=== PATIENT | female | born 1960 | race Caucasian/White ===

== ENCOUNTER 2017-02-14 22:19 | Emergency (ER) | payer MEDICAID, OTHER ==
[~2017-02-14] VITALS: Ht 152.4 cm; Wt 70.0 kg
[~2017-02-14 22:19] MED LIST: AMOX500C2 PO; IBUP-1542 PO; IBUPROFEN
[2017-02-14 22:21] VITALS: Ht 152.4 cm; Wt 70.0 kg
[2017-02-15] MEDS ORDERED: IBUP400T22 PO (02:12)
[2017-02-15] MEDS ORDERED: GABA300C16 PO (02:12)
[2017-02-15] MEDS ORDERED: HYDR-906 PO (02:12)
--- NOTE | 2017-02-15 02:24 | ERD ---
ER Documentation Chief Complaint Date/Time DATE: 02/15/17 TIME: 02:22 Chief Complaint lower back pain radiates to left leg x 3 days HPI 56-year-old female presents here to emergency department for complaints of left lower back pain radiating to the left lower leg for 3 days. Patient has this chronic type of pain, history of sciatica. Patient denies any trauma in the back. Patient denies any incontinence. Patient denies any hematuria. Patient denies any fever or chills. Patient is able to ambulate on it. Patient discussed the pain is sharp pain, 6/10 scale, intermittent pain, it radiates from the left lower back to the left lower leg. Patient denies any numbness or tingling. Patient denies any fever or chills. ROS All systems reviewed and are negative except as per history of present illness. Medications Home Meds Active Scripts Ibuprofen* (Motrin*) 400 Mg Tab, 400 MG PO Q6H Y for PAIN AND OR ELEVATED TEMP, #30 TAB Prov:HUSSAIN DE LOS SANTOS NP 02/15/17 Gabapentin* (Gabapentin*) 300 Mg Capsule, 300 MG PO BID, #60 CAP Prov:HUSSAIN DE LOS SANTOS NP 02/15/17 Hydrocodone/Acetaminophen ([place] 5-325 Tablet) 1 Each Tablet, 1 TAB PO Q6H Y for SEVERE PAIN LEVEL 7-10, #20 TAB Prov:HUSSAIN DE LOS SANTOS NP 02/15/17 Ibuprofen* (Ibuprofen*) 600 Mg Tablet, 600 MG PO Q6H Y for PAIN AND OR ELEVATED TEMP, #30 TAB Prov:HUSSAIN DE LOS SANTOS NP 01/15/15 Amoxicillin* (Amoxicillin*) 500 Mg Cap, 500 MG PO TID for 10 Days, CAP Prov:UHSSAIN DE LOS SANTOS NP 01/15/15 Reported Medications [Ibuprofen] No Conflict Check 01/15/13 Allergies Allergies: Coded Allergies: No Known Allergy (Unverified , 03/12/14) PMhx/Soc Medical and Surgical Hx: pt denies Surgical Hx History of Surgery: No Anesthesia Reaction: No Hx Neurological Disorder: No Hx Respiratory Disorders: No Hx Cardiac Disorders: No Hx Psychiatric Problems: No Hx Miscellaneous Medical Probl: Yes (Diabetes) Hx Alcohol Use: No Hx Substance Use: No Hx Tobacco Use: No Smoking Status: Never smoker FmHx Family History: No coronary disease, No diabetes, No other Physical Exam Vitals Vital Signs Date Time Temp Pulse Resp B/P Pulse Ox O2 Delivery O2 Flow Rate FiO2 02/14/17 22:21 97.6 78 18 143/67 97 Physical Exam GENERAL: The patient is well developed and appropriate for usual state of health, in no apparent distress. CHEST: Clear to auscultation bilaterally. There are no rales, wheezes or rhonchi. HEART: Regular rate and rhythm. No murmurs, clicks, rubs or gallops. No S3 or S4. ABDOMEN: Soft, nontender and nondistended. Good bowel sounds. No rebound or guarding. No gross peritonitis. No gross organomegaly or masses. No Hutton sign or McBurney point tenderness. BACK: No midline or flank tenderness. Positive left straight leg test. EXTREMITIES: Equal pulses bilaterally. There is no peripheral clubbing, cyanosis or edema. No focal swelling or erythema. Full range of motion. Grossly neurovascularly intact. NEURO: Alert and oriented. Cranial nerves 2-12 intact. Motor strength in all 4 extremities with 5/5 strength. Sensation grossly intact. Normal speech and gait. SKIN: There is no apparent rash or petechia. The skin is warm and dry. HEMATOLOGIC AND LYMPHATIC: There is no evidence of excessive bruising or lymphedema. No gross cervical, axillary, or inguinal lymphadenopathy. Procedures/MDM Medical Decision Making: Patient's pain is most likely consistent with a back pain caused by sciatica. There is no suspicion for neurovascular compromise. Patient has intact sensation and circulation of the affected extremity and distal extremities. No incontinence, no suspicion for cauda equina syndrome, no saddle anesthesia, no symptoms of any acute bacterial infection, no symptoms of any perirectal abscesses, pilonidal cyst.There is low suspicion for septic arthritis. Patient does not have any fever. No symptoms of any aortic dissection or aortic aneurysm. Radiology exam not indicated at this time. Disposition: Home. Patient is given prescription for ibuprofen for mild to moderate pain, Wellington for severe pain, gabapentin. Patient was advised to avoid heavy lifting , apply warm compresses on affected area. Patient was advised that if symptoms are worse, numbness, tingling, high fever, unable to move joint , worsening symptoms, to return to emergency department immediately. Otherwise, patient is advised to follow up with the primary care doctor in 5-7 days for reevaluation of symptoms. Disclaimer: Inadvertent spelling and grammatical errors are likely due to EHR/ dictation software use and do not reflect on the overall quality of patient care. Also, please note that the electronic time recorded on this note does not necessarily reflect the actual time of the patient encounter. Departure Diagnosis: Primary Impression: Back pain Back pain location: low back pain Chronicity: chronic Back pain laterality : left Sciatica presence: with sciatica Sciatica laterality: sciatica of left side Qualified Code: M54.42 - Chronic left-sided low back pain with left- sided sciatica Condition: Stable Patient Instructions: Back Pain W/ Sciatica HUSSAIN DE LOS SANTOS NP Feb 15, 2017 02:24
== END 2017-02-15 02:21 | disposition home or self-care (01) ==
LOC: FTE 22:19
DX: M54.42 Lumbago with sciatica, left side (principal); E11.9 Type 2 diabetes mellitus without complications
CPT/HCPCS: 99284

== ENCOUNTER 2017-03-23 20:12 | Emergency (ER) | payer OTHER ==
[~2017-03-23] VITALS: Ht 160 cm; Wt 69.5 kg
[~2017-03-23 20:12] MED LIST changes: +GABA300C16 PO; +HYDR-906 PO; +IBUP400T22 PO
[2017-03-23 20:32] VITALS: Ht 160 cm; Wt 69.5 kg
[2017-03-23] MEDS ORDERED: DIPHENHYDRAMINE 50 MG INJ IV ONE (22:00)
[2017-03-23] MEDS ORDERED: METHYLPREDNISOLONE 125 MG INJ IV ONE (22:00)
[2017-03-23] MEDS ORDERED: FAMOTIDINE 20 MG INJ IV ONE (22:00)
[2017-03-23] MEDS ORDERED: SOD CHLORIDE 0.9% 1,000 ML IV ONE (22:00)
[2017-03-23] MEDS ORDERED: BEN25 PO (23:44)
[2017-03-23] MEDS ORDERED: MED4DP PO (23:44)
[2017-03-24 00:58] VITALS: BP 122/63; PULSE 69; RESP 18; TEMP 98.2
--- NOTE | 2017-03-24 01:32 | ERD ---
ER Documentation Chief Complaint Chief Complaint GENERALIZED BODY RASH SINCE TUESDAY. OTC MEDS NOT WORKING HPI This is a 56-year-old female presents to the ER with a rash that started on Tuesday. Patient states that rash is very itchy, she tried taking over-the- counter Benadryl and tried putting cortisone on the rash however the rash continues. Patient also try an oatmeal bath however this did not work either. Patient denies any new foods, drug use, detergents. She has not traveled anywhere. There are no sick contacts at home. She denies any tongue swelling, lip swelling, eyes swelling. Patient denies any difficulty in breathing, chest pain or wheezing. ROS 12 point review of systems was done, all negative except per HPI. Medications Home Meds Active Scripts Diphenhydramine Hcl* (Benadryl*) 25 Mg Cap, 25 MG PO Q6, #30 CAP Prov:DIANA SANTOS 03/23/17 Methylprednisolone* (Medrol* DOSE PACK) 4 Mg/Dose-Pack Tab.ds.pk, 4 MG PO . DIRECTED for 5 Days, PACKET Prov:DIANA SANTOS 03/23/17 Ibuprofen* (Motrin*) 400 Mg Tab, 400 MG PO Q6H Y for PAIN AND OR ELEVATED TEMP, #30 TAB Prov:HUSSAIN DE LOS SANTOS NP 02/15/17 Gabapentin* (Gabapentin*) 300 Mg Capsule, 300 MG PO BID, #60 CAP Prov:HUSSAIN DE LOS SANTOS NP 02/15/17 Hydrocodone/Acetaminophen ([place] 5-325 Tablet) 1 Each Tablet, 1 TAB PO Q6H Y for SEVERE PAIN LEVEL 7-10, #20 TAB Prov:HUSSAIN DE LOS SANTOS NP 02/15/17 Ibuprofen* (Ibuprofen*) 600 Mg Tablet, 600 MG PO Q6H Y for PAIN AND OR ELEVATED TEMP, #30 TAB Prov:HUSSAIN DE LOS SANTOS NP 01/15/15 Amoxicillin* (Amoxicillin*) 500 Mg Cap, 500 MG PO TID for 10 Days, CAP Prov:HUSSAIN DE LOS SANTOS NP 01/15/15 Reported Medications [Ibuprofen] No Conflict Check 01/15/13 Allergies Allergies: Coded Allergies: No Known Allergy (Unverified , 03/23/17) PMhx/Soc Medical and Surgical Hx: pt denies Medical Hx, pt denies Surgical Hx History of Surgery: No Anesthesia Reaction: No Hx Neurological Disorder: No Hx Respiratory Disorders: No Hx Cardiac Disorders: No Hx Psychiatric Problems: No Hx Miscellaneous Medical Probl: Yes (PRE Diabetes) Hx Alcohol Use: No Hx Substance Use: No Hx Tobacco Use: No Smoking Status: Never smoker Physical Exam Vitals Vital Signs Date Time Temp Pulse Resp B/P Pulse Ox O2 Delivery O2 Flow Rate FiO2 03/24/17 00:58 98.2 69 18 122/63 98 Room Air 03/23/17 20:32 98.7 94 20 132/83 99 Physical Exam GENERAL: The patient is well developed and appropriate for usual state of health , in no apparent distress. HEENT: Atraumatic. Tonsillar erythema, tongue swelling, lip swelling, eyes swelling. CHEST: Clear to auscultation bilaterally. There are no rales, wheezes or rhonchi. HEART: Regular rate and rhythm. No murmurs, clicks, rubs or gallops. NEURO: Alert and oriented. SKIN: macular papular rash all over the body. Results 24 hrs Current Medications Medications (Trade) Dose Ordered Sig/Jose Raul Route PRN Reason Start Time Stop Time Status Last Admin Dose Admin Sodium Chloride (NS) 1,000 ml @ 1,000 mls/hr Q1H ONCE IV 03/23/17 22:00 03/23/17 22:59 DC 03/23/17 22:14 Methylprednisolone Sodium Succinate (Solu-Medrol) 125 mg ONCE ONCE IV 03/23/17 22:00 03/23/17 22:02 DC 03/23/17 22:14 Famotidine (Pepcid Iv) 20 mg ONCE ONCE IV 03/23/17 22:00 03/23/17 22:02 DC 03/23/17 22:14 Diphenhydramine HCl (Benadryl) 50 mg ONCE ONCE IV 03/23/17 22:00 03/23/17 22:02 DC 03/23/17 22:14 Procedures/MDM Differential Diagnosis: dermatitis, allergic urticaria, viral exanthem, insect bite, fungal infection ,viral exanthem, hand foot mouth disease, , impetigo, cellulitis, abscess, patricio tony syndrome, meningocemia, necrotizing fasciitis, myositis. Clinical suspicion for necrotizing fasciitis or myositis is low. There are no skip leasions or pain away from the site of the rash. Clinical suspicion for patricio tony syndrome is low. There is not history new medication use or mucosal involvement. Patient was treated with IV Solu-Medrol , Benadryl and Pepcid in the ER, her rash improved greatly. She was no longer itchy. Suspicion for severe allergic reactions low patient does not have any signs or symptoms of angina edema or or difficulty in breathing. Patient will be sent home with prednisone and with Benadryl. She is to follow-up with her primary care doctor within 1-2 days or return to ER sooner if symptoms worsen. My medical decision making sure with the patient she understands and agrees with plan. Departure Diagnosis: Primary Impression: Rash Condition: Stable Patient Instructions: Self-Care for Skin Rashes Additional Instructions: Call your primary care doctor TOMORROW for an appointment during the next 1-2 days.See the doctor sooner or return here if your condition worsens before your appointment time. DIANA SANTOS Mar 24, 2017 01:32
== END 2017-03-24 00:58 | disposition home or self-care (01) ==
LOC: FTE 20:12
DX: R21 Rash and other nonspecific skin eruption (principal)
CPT/HCPCS: 96374; 96375; J1200; J2930; J7030; Z7502; Z7610

== ENCOUNTER 2017-06-21 07:47 | Emergency (ER) | END 2017-06-21 11:24 | disposition home or self-care (01) ==

== ENCOUNTER 2017-11-18 21:00 | Emergency (ER) | END 2017-11-18 23:37 | disposition home or self-care (01) ==